=== PATIENT | male | born 1985 | race Two or more races ===

== ENCOUNTER 2018-07-21 14:31 | Emergency (ER) | payer SELFPAY ==
[~2018-07-21] VITALS: Ht 177.8 cm; Wt 80.0 kg
[2018-07-21] MEDS ORDERED: TETANUS, DIPHTHERIA, PERTUSSIS VAC/PF 0.5ML (>7YR OLD) IM ONE (16:00)
[2018-07-21 17:15] LABS: BASOPHILS % 0.4 % (0.0-2.0); EOSINOPHILS % 0.4 % (0.0-5.0); HEMATOCRIT. 45.6 % (42.0-52.0); HEMOGLOBIN. 15.5 g/dL (14.0-18.0); LYMPHOCYTES % 10.2 % (20.0-50.0); MEAN CORPUSCULAR HEMOGLOBIN 31.1 pg (28.0-32.0); MEAN CORPUSCULAR VOLUME 91.9 fL (80.0-94.0); MEAN PLATELET VOLUME 7.7 fl (7.4-10.4); MONOCYTES % 8.1 % (2.0-8.0); NEUTROPHILS % 80.9 % (40.0-76.0); PLATELET 222 x1000/uL (130-400); RED BLOOD CELL COUNT 4.96 mill/uL (4.7-6.1); RED CELL DISTRIBUTION WIDTH 13.2 % (11.6-14.6)
[2018-07-21 17:21] LABS: CHLORIDE 103 mEq/L (98-107); INR 1.1; PARTIAL THROMBOPLASTIN TIME 24.6 sec (23.4-31.0); PROTHROMBIN TIME 10.6 sec (9.1-11.1)
[2018-07-21] MEDS ORDERED: LEVETIRACETAM 500MG PREMIX 100 ML IV ONE (19:00)
[2018-07-21] MEDS ORDERED: DEXTROSE 50% WATER 50ML SYRINGE IV ONE (19:45)
[2018-07-21 20:48] VITALS: BP 107/77
== END 2018-07-21 21:15 | disposition short-term general hospital (02) ==
LOC: ER 14:54
DX: S02.119A Unspecified fracture of occiput, initial encounter for closed fracture (principal); S70.311A Abrasion, right thigh, initial encounter; S60.512A Abrasion of left hand, initial encounter; S90.812A Abrasion, left foot, initial encounter; S09.8XXA Other specified injuries of head, initial encounter; V49.3XXA Car occupant (driver) (passenger) injured in unspecified nontraffic accident, initial encounter; Y93.89 Activity, other specified; Y92.89 Other specified places as the place of occurrence of the external cause; Y99.8 Other external cause status
CPT/HCPCS: 36415; 70450; 71045; 72125; 73130; 73630; 80048; 82962; 85025; 85610; 85730; 86850; 86900; 86901; 90471; 90715; 96365; 99291; J1953